=== PATIENT | female | born 1985 | race Caucasian/White ===

== ENCOUNTER 2024-06-10 08:48 | Outpatient (AMB) | payer OTHER, SELFPAY ==
--- NOTE | 2024-06-10 08:51 | MHC.OFFVIS ---
Vital Signs 06/10/24 08:53 Height 5 ft Weight 194 lb 14.218 oz BMI 38.1 BP 105/67 Blood Pressure Location Lt brachial Position Sitting Pulse 69 Intake Visit Reasons: Diverticulitis and fatty liver Intake Note: New patient in office today for diverticulitis and fatty liver. CC: Patient reports that her last diverticulitis flare up was in September and she was seen at [facility] ER. She states that sometimes is a little hard for her to have a BM. Patient has never had a colonoscopy done. Denies other GI symptoms today. [facility] Required: No Accompanied by: Self / Same As Patient Allergies No Known Drug Allergies Allergy (Verified 06/10/24 08:56) none HPI Comments Details: 38 y.o F who is here to establish care for diverticular disease. Pt reports at least 2 episodes of lower abd pain in the past year. Assoc with nausea. First episode mar 2023 - seen by PCP was told possibly IBS. Second episode in September 2023 when she ended up going to [facility] ER for evaluation. CT abd/pel 10/03/23: 1. Uncomplicated diverticulitis involving the descending colon. 2. Suspected wide neck left paraduodenal internal hernia without evidence of bowel obstruction. Was given PO Abx Augmentin and discharged from ER. Pt has never had a colo. NO fam hx of CRC, IBD. Does not smoke. Rare etOH use. No abd pain, N,V, D or blood in stool at baseline. [facility] Surgical History H/O wisdom tooth extraction S/P section Family History Paternal Uncle Pancreatic cancer Family/Other Pancreatic cancer Social History Alcohol intake: never Patient Tobacco Use Status: Never used Tobacco Use of substances other than those prescribed or required for medical reasons: No Review of Systems Const All systems reviewed & are unremarkable except as noted in HPI and below Physical Exam Vital Signs: Last Vital Signs Pulse 69 06/10/24 08:53 BP 105/67 06/10/24 08:53 BMI result Body Mass Index 38.1 No apparent distress Nonicteric Abdomen soft, nondistended Alert and oriented x3, normal gait Assessment & Plan Assessment & Plan (1) Diverticulosis: Code(s): K57.90 - Diverticulosis of intestine, part unspecified, without perforation or abscess without bleeding Category: Medical (2) History of diverticulitis: Code(s): Z87.19 - Personal history of other diseases of the digestive system Category: Medical Plan Pt needs a follow up colo after episode of diverticulitis. THis will be set up. PEG prep instructions reviewed. WIll also get updated CBC Follow up after colo Orders: Orders Complete Blood Count no Diff Today Z87.19 - Personal history of other diseases of the digestive system Medications: New peg 3350-electrolytes 236-22.74-6.74 -5.86 gram (Golytely) as per split prep instructions, until fecal effluent is clear 240 mL PO Q10M 4,000 mL 0RF colonoscopy Coding Level of Care Code New Pt Level 4 (18186) Diagnoses Diverticulosis K57.90 History of diverticulitis Z87.19
[2024-06-10 08:53] VITALS: BP 105/67; PULSE 69; BMI 38.1
== END 2024-06-10 09:42 | disposition home or self-care (01) ==
PROVIDERS: PCP Physician Assistant Medical; Visit Provider Internal Medicine
DX: K57.90 Diverticulosis of intestine, part unspecified, without perforation or abscess without bleeding (principal); Z87.19 Personal history of other diseases of the digestive system
CPT/HCPCS: 99204

== ENCOUNTER 2024-06-10 08:48 | Outpatient (REF) | payer OTHER, SELFPAY ==
[2024-06-10 10:50] LABS: Hematocrit 42.3 % (37.0-47.0); Hemoglobin 14.3 g/dl (12.0-16.0); Mean Corpuscular HGB Conc 33.8 g/dl (31.0-35.0); Mean Corpuscular Hemoglobin 30.6 pg (27.0-33.0); Mean Corpuscular Volume 90.4 fL (80.0-98.0); Platelet Count 261 X10*3/uL (160-400); Red Blood Count 4.68 X10*6/uL (4.20-5.50); Red Cell Distribution Width 12.7 % (11.0-16.0); White Blood Count 9.1 X10*3/uL (4.8-10.8)
== END 2024-06-10 08:49 | disposition home or self-care (01) ==
LOC: HO.LAB 08:48
PROVIDERS: PCP Physician Assistant Medical; Visit Provider Internal Medicine
DX: Z87.19 Personal history of other diseases of the digestive system (principal)
CPT/HCPCS: 36415; 85027

== ENCOUNTER 2024-07-16 15:10 | Outpatient (AMB) | payer OTHER, SELFPAY ==
--- NOTE | 2024-07-16 15:18 | A.OFFVIS_ITS ---
Vital Signs 07/16/24 15:20 Height 5 ft Weight 198 lb 2 oz BMI 38.7 BP 141/65 H Blood Pressure Location Lt brachial Position Sitting Pulse 80 Intake Visit Reasons: abdominal hernia without obstruction or gangrene Intake Note: Patient is seen in office for evaluation of an abdominal hernia. Pt c/o: was an incidental finding had CT scan done for diverticulitis, does not feel a lump, denies n/v/d/c, no symptoms regarding the hernia CT:10/03/23 ([facility]) Forming Department End Finder Required: No Accompanied by: Self / Same As Patient Allergies No Known Drug Allergies Allergy (Verified 07/16/24 15:19) none Medication List - Last Reconciled 07/16/24 by Rony Souza MD peg 3350-electrolytes 236-22.74-6.74 -5.86 gram (Golytely) 240 mL PO Q10M HPI HPI abdominal hernia without obstruction or gangrene: Details: [age] year old female referred for a ?internal hernia?. She apparently had a CT scan in [facility] last September,. The reports had mentioned a question of an internal hernia. She says she went to the ER at that time in [facility] because of an episode of diverticulitis. She was diagnosed to have diverticulitis at that time with her CT scan. She has had no further episodes She was following the [facility] service here because of her diverticulitis. She saw post to have a colonoscopy. She was referred to me because of the abdominal CT scan with a question of an internal hernia from last year. She actually denies any abdominal pain. She has good oral intake. She denies any suggestion of bowel obstruction. She had 2 C sections in the past. [facility] Medical History Abnormal CT of the abdomen Surgical History H/O wisdom tooth extraction S/P section Family History Paternal Uncle Pancreatic cancer Family/Other Pancreatic cancer Social History Alcohol intake: never Patient Tobacco Use Status: Never used Tobacco Review of Systems Const Denies chills and Denies fever(s) Card Denies chest pain, Denies dyspnea and Denies dyspnea on exertion Resp Denies cough, Denies dyspnea and Denies dyspnea on exertion GI Denies hematochezia and Denies change in bowel habits Denies hematuria Musc Denies back pain and Denies limited range of motion Neuro Denies focal weakness and Denies convulsions Psych Denies depression and Denies mood swings Physical Exam Const General: comfortable and no acute distress Orientation/consciousness: patient oriented x3 Neck Neck: Yes no lymphadenopathy Resp Auscultation: clear to auscultation bilaterally Cardio Rhythm: regular rhythm GI Palpation (GI): Soft to palpation, nontender and no guarding Neuro General: patient oriented x3 Assessment & Plan Assessment & Plan (1) Abnormal CT of the abdomen: Code(s): R93.5 - Abnormal findings on diagnostic imaging of other abdominal regions, including retroperitoneum Category: Medical Plan: She had a CAT scan in [facility] last September, showing a question of internal hernia. History and physical exam does not suggest this. She does not have any symptoms suggestive of a small-bowel obstruction. I am going to repeat her CT scan. She does have a history of diverticulitis. She is supposed to have a colonoscopy with GI and we are going to facilitate this for her. I am going to see her in the office after her CT scan to review the findings. She seems to have good understanding of the plan. Orders: Orders Creatinine Today R93.5 - Abnormal findings on diagnostic imaging of other abdominal regions, including retroperitoneum CT abdomen pelvis w IV con Today R93.5 - Abnormal findings on diagnostic imaging of other abdominal regions, including retroperitoneum Blood Urea Nitrogen Today R93.5 - Abnormal findings on diagnostic imaging of other abdominal regions, including retroperitoneum Coding Level of Care Code New Pt Level 3 (89571) Diagnoses Abnormal CT of the abdomen R93.5
[2024-07-16 15:20] VITALS: BP 141/65; PULSE 80; BMI 38.7
== END 2024-07-16 15:41 | disposition home or self-care (01) ==
PROVIDERS: PCP Physician Assistant Medical; Visit Provider Surgery
DX: R93.5 Abnormal findings on diagnostic imaging of other abdominal regions, including retroperitoneum (principal)
CPT/HCPCS: 99203

== ENCOUNTER → 2024-07-16 15:10 | Outpatient (BNVA) | payer OTHER, SELFPAY | PROVIDERS: PCP Physician Assistant Medical; Visit Provider Surgery ==